=== PATIENT | male | born 1960 | race Caucasian/White ===

== ENCOUNTER 2017-08-05 15:24 | Emergency (ER) | payer OTHER ==
[2017-08-05] MEDS ORDERED: Diphtheria,Pertussis(Acell),Tetanus Vaccine 0.5 ML Syringe IM ONE (15:42)
[2017-08-05] MEDS ORDERED: Bacitracin Oint 1 GM U/D Packet TOP ONE (15:43)
[2017-08-05] MEDS ORDERED: Lidocaine 1% 20 ML MDV INJECT ONE (15:43)
--- NOTE | 2017-08-05 15:46 | EDM.PDOC ---
ED HPI GENERAL MEDICAL PROBLEM - General Chief Complaint: Upper Extremity Injury/Pain Stated Complaint: PT SMASHED TUMB ON HIS LT HAND Time Seen by Provider: 08/05/17 15:29 Source of Information: Reports: Patient History Limitations: Reports: No Limitations - History of Present Illness INITIAL COMMENTS - FREE TEXT/NARRATIVE: HISTORY AND PHYSICAL: History of present illness: Patient is a 57-year-old male who presents to the emergency room today with complaints of a left thumb crush injury. 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 He denies any other finger or sternum any involvement. He is unsure of his last tetanus shot. Review of systems: As per history of present illness and below otherwise all systems reviewed and negative. Past medical history: As per history of present illness and as reviewed below otherwise noncontributory. Surgical history: As per history of present illness and as reviewed below otherwise noncontributory. Social history: No reported history of drug or alcohol abuse. Family history: As per history of present illness and as reviewed below otherwise noncontributory. Physical exam: General: Developed and well-nourished 57-year-old male. Alert and oriented. Nontoxic appearing and in no acute distress. HEENT: Atraumatic, normocephalic, pupils equal and reactive bilaterally, negative for conjunctival pallor or scleral icterus, mucous membranes moist, throat clear, neck supple, nontender, trachea midline. No drooling or trismus noted. No meningeal signs Lungs: Clear to auscultation, breath sounds equal bilaterally, chest nontender. Heart: S1S2, regular rate and rhythm without overt murmur Abdomen: Soft, nondistended, nontender. Negative for masses or hepatosplenomegaly. Negative for costovertebral tenderness. Pelvis: Stable nontender. Genitourinary: Deferred. Rectal: Deferred. Skin: 3 cm linear laceration to the left thumb, will require stitches. Tendon involvement. Otherwise skin is intact, warm, dry. No lesions or rashes noted. Extremities: Crush injury to the left thumb. He is able to flex and extend the affected digit. + Strength and resistant. Appears to have no tendon involvement. No other digit for wrist involvement. Pulse. Capillary refill less than 3 seconds. He is negative for cords or calf pain. Neurovascular unremarkable. Neuro: Awake, alert, oriented. Cranial nerves II through XII unremarkable. Cerebellum unremarkable. Motor and sensory unremarkable throughout. Exam nonfocal. Notes: Area was cleansed thoroughly with chlorhexidine and wound wash. Anesthetized with 1% lidocaine. Sterile technique was used. 40, 7 interrupted sutures. Patient tolerated well. Bacitracin nonstick dressing applied with tube gauze. 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 I encouraged him to keep his skin clean and dry. He is requesting a prophylactic antibiotic as he is concerned it may get contaminated. We'll him Keflex twice a day 7 days. Reviewed signs and symptoms of infection, to monitor at home. He voices understanding and is agreeable to plan of care. He denies any further questions at this time. Diagnostics: X-ray Therapeutics: 1% lidocaine, bacitracin, nonstick dressing, wound care Impression: Crush injury, crush thumb Laceration Plan: 1. Rest, ice, elevate the affected extremity. Tylenol and/or ibuprofen as needed for pain management. 2. Keep the skin clean and dry. Avoid submerging underwater. Sutures to be removed in 10-12 days. 3. Follow-up with your primary caregiver in the next 1-2 days. Return to the ED as needed and as discussed. Definitive disposition and diagnosis as appropriate pending reevaluation and review of above. Onset: Today Duration: Minutes: Location: Reports: Upper Extremity, Left Left thumb Pain Score (Numeric/FACES): 3 - Related Data Allergies Allergy/AdvReac Type Severity Reaction Status Date / Time No Known Allergies Allergy Verified 08/05/17 15:37 Home Meds: Home Meds . [No Known Home Meds] 05/18/16 [History] Past Medical History HEENT History: Reports: None Cardiovascular History: Reports: None Respiratory History: Reports: None Genitourinary History: Reports: None Musculoskeletal History: Reports: None Neurological History: Reports: None Psychiatric History: Reports: None Endocrine/Metabolic History: Reports: None Hematologic History: Reports: None Immunologic History: Reports: None Oncologic (Cancer) History: Reports: None Dermatologic History: Reports: None - Infectious Disease History Infectious Disease History: Reports: None - Past Surgical History Head Surgeries/Procedures: Reports: None HEENT Surgical History: Reports: None Cardiovascular Surgical History: Reports: None Respiratory Surgical History: Reports: None GI Surgical History: Reports: Appendectomy Male Surgical History: Reports: None Endocrine Surgical History: Reports: None Neurological Surgical History: Reports: None Musculoskeletal Surgical History: Reports: None Oncologic Surgical History: Reports: None Social & Family History - Tobacco Use Smoking Status *Q: Current Every Day Smoker Years of Tobacco use: 40 Packs/Tins Daily: 0.5 Second Hand Smoke Exposure: No - Recreational Drug Use Recreational Drug Use: No Review of Systems - Review of Systems Review Of Systems: ROS reveals no pertinent complaints other than HPI. ED EXAM, GENERAL - Physical Exam Exam: See Below (See dictation) ED TRAUMA EXTREMITY PROCEDURES - Laceration/Wound Repair Left thumb Lac/Wound Length In cm: 3 Appearance: Subcutaneous, Linear Distal NVT: Neuro & Vascular Intact, No Tendon Injury Anesthetic Type: Local Local Anesthesia - Lidocaine (Xylocaine): 1% Plain Local Anesthetic Volume: 5cc Skin Prep: Chlorhexidine (Hibiciens), Saline, Sterile Drape Saline Irrigation (cc's): 20 Exploration/Debridement/Repair: Wound Explored, No Foreign Material Found Closed With: Sutures Suture Size: 4-0 # of Sutures: 7 Suture Type: Interrupted Drain Placement: No Sterile Dressing Applied: Provider Tetanus Status Addressed: Yes Complications: No Course - Vital Signs Last Recorded V/S: Last Vital Signs Temp 98.5 F 08/05/17 15:37 Pulse 101 H 08/05/17 15:37 Resp 16 08/05/17 15:37 BP 134/62 08/05/17 15:37 Pulse Ox 98 08/05/17 15:37 - Orders/Labs/Meds Orders: Active Orders 24 hr Category Date Time Status Communication Order [RC] STAT Care 08/05/17 15:43 Active Vaccines to be Administered [RC] PER UNIT ROUTINE Care 08/05/17 15:43 Active Fingers Thumb Lt FA [CR] Stat Exams 08/05/17 15:43 Taken Meds: Medications Discontinued Medications Generic Name Dose Route Start Last Admin Trade Name Freq PRN Reason Stop Dose Admin Bacitracin 1 dose 08/05/17 15:43 08/05/17 15:53 Bacitracin Oint 1 Gm TOP 08/05/17 15:44 1 dose ONETIME ONE Administration Diphtheria/Tetanus/Acell Pertussis 0.5 ml 08/05/17 15:42 08/05/17 15:54 Adacel IM 08/05/17 15:43 0.5 ml .ONCE ONE Administration Lidocaine HCl 20 ml 08/05/17 15:43 08/05/17 15:53 Xylocaine 1% INJECT 08/05/17 15:44 20 ml ONETIME ONE Administration Departure - Departure Time of Disposition: 16:18 Disposition: Home, Self-Care 01 Clinical Impression: Crush injury, Laceration - Discharge Information Referrals: PCP,None [Primary Care Provider] - Forms: ED Department Discharge Additional Instructions: The following information is given to patients seen in the emergency department who are being discharged to home. This information is to outline your options for follow-up care. We provide all patients seen in our emergency department with a follow-up referral. The need for follow-up, as well as the timing and circumstances, are variable depending upon the specifics of your emergency department visit. If you don't have a primary care physician on staff, we will provide you with a referral. We always advise you to contact your personal physician following an emergency department visit to inform them of the circumstance of the visit and for follow-up with them and/or the need for any referrals to a consulting specialist. The emergency department will also refer you to a specialist when appropriate. This referral assures that you have the opportunity for follow-up care with a specialist. All of these measure are taken in an effort to provide you with optimal care, which includes your follow-up. Under all circumstances we always encourage you to contact your private physician who remains a resource for coordinating your care. When calling for follow-up care, please make the office aware that this follow-up is from your recent emergency room visit. If for any reason you are refused follow-up, please contact the Emergency Department at and asked to speak to the emergency department charge nurse. Primary Care [address] [place] [id number] 1. Rest, ice, elevate the affected extremity. Tylenol and/or ibuprofen as needed for pain management. 2. Keep the skin clean and dry. Avoid submerging underwater. Sutures to be removed in 10-12 days. 3. Follow-up with your primary caregiver in the next 1-2 days. Return to the ED as needed and as discussed. - My Orders Last 24 Hours: My Active Orders 08/05/17 15:43 Communication Order [RC] STAT Vaccines to be Administered [RC] PER UNIT ROUTINE Fingers Thumb Lt FA [CR] Stat - Assessment/Plan Last 24 Hours: My Active Orders 08/05/17 15:43 Communication Order [RC] STAT Vaccines to be Administered [RC] PER UNIT ROUTINE Fingers Thumb Lt FA [CR] Stat
--- NOTE | 2017-08-05 16:19 | CR ---
EXAMINATION: Left thumb HISTORY: Crush injury COMPARISON: None TECHNIQUE: 3 views FINDINGS/IMPRESSION: There is no acute osseous abnormality, dislocation, or fracture. Moderate joint space narrowing and mild osteoarthritic changes in the first CMC joint. Early osteoarthritic changes noted within the first interphalangeal joint and first CMC joint.
[2017-08-05 16:28] VITALS: BP 164/78
== END 2017-08-05 16:34 | disposition home or self-care (01) ==
LOC: MW.ED 15:24
DX: S67.02XA Crushing injury of left thumb, initial encounter (principal); S61.012A Laceration without foreign body of left thumb without damage to nail, initial encounter; F17.210 Nicotine dependence, cigarettes, uncomplicated; Z23 Encounter for immunization; W23.1XXA Caught, crushed, jammed, or pinched between stationary objects, initial encounter
CPT/HCPCS: 73140-26-FA; 73140-FA; 90471; 90715; 99283-25

== ENCOUNTER 2017-08-13 09:08 | Emergency (ER) | payer OTHER ==
[2017-08-13 09:15] VITALS: BP 126/67
== END 2017-08-13 09:19 | disposition home or self-care (01) ==
LOC: MW.ED 09:08
DX: Z53.21 Procedure and treatment not carried out due to patient leaving prior to being seen by health care provider (principal)

== ENCOUNTER 2020-11-16 09:10 | Emergency (ER) | payer OTHER ==
[2020-11-16] MEDS ORDERED: Cephalexin 500 MG Cap PO STA (10:17)
--- NOTE | 2020-11-16 10:21 | EDM.PDOC ---
ED HPI GENERAL MEDICAL PROBLEM - General Chief Complaint: Upper Extremity Injury/Pain Stated Complaint: SMASHED FINGER ON RIGHT HAND Time Seen by Provider: 11/16/20 09:29 - History of Present Illness INITIAL COMMENTS - FREE TEXT/NARRATIVE: Patient presents with injury to his right ring finger. A large heavy metal wheel with a sharp edge fell on his hand with a crush injury and resulting laceration. Moderate pain worse with movement. No definite numbness or weakness patient's tetanus up-to-date - Related Data Allergies Allergy/AdvReac Type Severity Reaction Status Date / Time No Known Allergies Allergy Verified 11/16/20 09:37 Home Meds: Home Meds cephALEXin [Keflex] 500 mg PO BID #14 cap 11/16/20 [Rx] Past Medical History - Past Health History Medical/Surgical History: Denies Medical/Surgical History HEENT History: Reports: None Cardiovascular History: Reports: None Respiratory History: Reports: None Genitourinary History: Reports: None Musculoskeletal History: Reports: None Neurological History: Reports: None Psychiatric History: Reports: None Endocrine/Metabolic History: Reports: None Hematologic History: Reports: None Immunologic History: Reports: None Oncologic (Cancer) History: Reports: None Dermatologic History: Reports: None - Infectious Disease History Infectious Disease History: Reports: None - Past Surgical History Head Surgeries/Procedures: Reports: None HEENT Surgical History: Reports: None Cardiovascular Surgical History: Reports: None Respiratory Surgical History: Reports: None GI Surgical History: Reports: Appendectomy Male Surgical History: Reports: None Endocrine Surgical History: Reports: None Neurological Surgical History: Reports: None Musculoskeletal Surgical History: Reports: None Oncologic Surgical History: Reports: None Social & Family History - Family History Family Medical History: No Pertinent Family History - Caffeine Use Caffeine Use: Reports: None - Recreational Drug Use Recreational Drug Use: No Review of Systems - Review of Systems Review Of Systems: See Below Musculoskeletal: Reports: Joint Pain Skin: Reports: Other (laceration of the right ring finger) Neurological: Denies: Numbness, Weakness ED EXAM, GENERAL - Physical Exam Exam: See Below Free Text/Narrative:: CONSTITUTIONAL: well appearing in no acute distress SKIN: Right ring finger ventral surface 2 cm laceration distal to the insertion of the flexor tendon. Patient with some mild underlying bony tenderness. No foreign body noted. Good sensorimotor function. Cap refill less than 2 seconds. Good flexion extension without overt tendon function through evaluation of full range of motion. HENT: Normocephalic, atraumatic, NECK: normal range of motion PULMONARY: normal chest rise and fall, no respiratory distress or stridor NEUROLOGIC: normal speech, moves all extremities, grossly non-focal MUSCULOSKELETAL: no gross deformities, atraumatic PSYCHIATRIC: normal mood and affect Exam Limited By: No Limitations ED TRAUMA EXTREMITY PROCEDURES - Laceration/Wound Repair Right Distal Digit - 4th (Ring) Appearance: Superficial Distal NVT: Neuro & Vascular Intact Anesthetic Type: Digital Local Anesthesia - Lidocaine (Xylocaine): 1% with EPI Local Anesthetic Volume: 5cc Skin Prep: Providone-Iodine (Betadine) Saline Irrigation (cc's): 500 Closed With: Sutures Suture Size: 4-0 Suture Type: Other (Ethilon) Suture Size: 4-0 # of Sutures: 5 Complications: No Course - Vital Signs Text/Narrative:: Patient presents with laceration crush injury to the right ring finger. This is distal to the distal tendon insertion and was irrigated and approximated. Neurovascularly intact. X-rays read negative by radiology. I cannot identify very minute tuft fracture but this is less likely. Patient will be covered with antibiotics in the event that this does represent a very minor open fraction with good return precautions and reevaluation Last Recorded V/S: Last Vital Signs Temp 36.6 C 11/16/20 09:35 Pulse 89 11/16/20 09:35 Resp 16 11/16/20 09:35 BP 130/76 11/16/20 09:35 Pulse Ox 98 11/16/20 09:35 - Orders/Labs/Meds Meds: Medications Discontinued Medications Generic Name Dose Route Start Last Admin Trade Name Seth PRN Reason Stop Dose Admin Cephalexin 500 mg 11/16/20 10:17 11/16/20 10:24 Cephalexin 500 Mg Cap PO 11/16/20 10:18 500 mg NOW STA Administration Lidocaine HCl 5 ml 11/16/20 09:32 11/16/20 09:54 Lidocaine 1% 5 Ml Sdv INJECT 11/16/20 09:33 5 ml ONETIME ONE Administration Departure - Departure Time of Disposition: 10:27 Disposition: Home, Self-Care 01 Condition: Good Clinical Impression: Finger laceration - Discharge Information Instructions: Laceration Care, Adult Referrals: PCP,None [Primary Care Provider] - Forms: ED Department Discharge Additional Instructions: Return in 2 days for wound check. As mentioned and I cannot exclude a very small fracture. Return sooner for redness or swelling or discharge or increasing pain or change or worsening condition. Take antibiotics as prescribed to prevent infection. Suture removal in 7 to 10 days. Sepsis Event Note (ED) - Evaluation Sepsis Screening Result: No Definite Risk - Focused Exam Vital Signs: Vital Signs Temp Pulse Resp BP Pulse Ox 11/16/20 09:35 36.6 C 89 16 130/76 98
--- NOTE | 2020-11-16 10:24 | CR ---
Indication: Crushed right phalanx Comparison: None available. Technique: AP, Lateral, and Oblique views right hand were obtained Findings: There is no displaced fracture or dislocation. There is moderate to severe degenerative change of the distal greater than proximal interphalangeal joints. There is moderate soft tissue swelling of the 4th digit. Impression: Moderate degenerative changes of the interphalangeal joints and fusiform soft tissue swelling without evidence of acute osseous abnormality. Dictated by Prasanth Sage MD @ 11/16/2020 10:23:[address] Prasanth Sage @ Nov 16 2020 10:23AM
[2020-11-16 10:50] VITALS: BP 123/68; PULSE 83
== END 2020-11-16 10:50 | disposition home or self-care (01) ==
LOC: MW.ED 09:10
DX: S61.214A Laceration without foreign body of right ring finger without damage to nail, initial encounter (principal); W20.8XXA Other cause of strike by thrown, projected or falling object, initial encounter; W26.8XXA Contact with other sharp object(s), not elsewhere classified, initial encounter
CPT/HCPCS: 12001; 73120; 99283; A9270